=== PATIENT | female | born 1950 | race Caucasian/White ===

== ENCOUNTER 2016-11-20 22:41 | Emergency (ER) | payer BC ==
[~2016-11-20] VITALS: Ht 172.7 cm; Wt 80.0 kg
[2016-11-20 22:43] VITALS: BP 191/88; PULSE 91; RESP 20; O2SAT 95
[2016-11-20 23:00] VITALS: BP 188/91; PULSE 78; RESP 18; TEMP 97.9; O2SAT 97
--- NOTE | 2016-11-20 23:03 | PD ---
HPI Chief Complaint: Nosebleed Time Seen by Provider: 23:02 Travel History International Travel<30 days: No Contact w/Intl Traveler<30days: Yes (domestic flight) History of Present Illness HPI The patient 66 years old. [place] epistaxis from the right nostril. Application of pressure for approx 20 minutes did not help. She saw the first aid there. They stopped the epistaxis. She arrives here with no pain. She takes no anticoagulation. No similar prior events has occurred however she did have a mild episode of right epistaxis yesterday. PFSH Past Medical History Thyroid Disease: Yes : 3 Para: 3 Past Surgical History Tonsillectomy: Yes Other Surgery: Yes (breast implants) Social History Alcohol Use: Yes (socially) Tobacco Use: No Substance Use: No Allergies-Medications (Allergen,Severity, Reaction): Coded Allergies: No Known Allergies (Unverified , 11/20/16) Reported Meds & Prescriptions Reported Meds & Active Scripts Active Reported Ambien (Zolpidem Tartrate) 5 Mg Tab 5 Mg PO HS PRN Review of Systems Except as stated in HPI: all other systems reviewed are Neg General / Constitutional: No: Fever, Chills HENT: Positive: Nosebleed Physical Exam Narrative GENERAL: 66 yo F, WNWD, appropriate anxiety SKIN: Warm and dry. HEAD: Atraumatic. Normocephalic. EYES: Pupils equal and round. No scleral icterus. No injection or drainage. ENT: No nasal bleeding or discharge. Mucous membranes pink and moist. R anterior epistaxis with minimal active extravasation. + Blood in posterior oropharynx, minimal streaks of clotting blood. NECK: Trachea midline. No JVD. CARDIOVASCULAR: Regular rate and rhythm. No murmur appreciated. RESPIRATORY: No accessory muscle use. Clear to auscultation. Breath sounds equal bilaterally. GASTROINTESTINAL: Abdomen soft, non-tender, nondistended. Hepatic and splenic margins not palpable. MUSCULOSKELETAL: No obvious deformities. No clubbing. No cyanosis. No edema. NEUROLOGICAL: Awake and alert. No obvious cranial nerve deficits. Motor grossly within normal limits. Normal speech. PSYCHIATRIC: Appropriate mood and affect; insight and judgment normal. Data Data Last Documented VS Vital Signs Date Time Temp Pulse Resp B/P Pulse Ox O2 Delivery O2 Flow Rate FiO2 11/20/16 23:44 71 18 164/74 99 11/20/16 23:00 97.9 11/20/16 22:43 Room Air VS reviewed MDM Medical Decision Making Medical Screen Exam Complete: Yes Emergency Medical Condition: Yes Medical Record Reviewed: Yes Differential Diagnosis anterior epistaxis, posterior epistaxis, anemia, htn Narrative Course rhino rocket placed. pt tolerated well. she's ready for discharge. follow up with Dr Guerrier on Tuesday. case d/w Dr Guerrier Diagnosis Primary Impression: Anterior epistaxis Referrals: Willis Guerrier MD 1 day Call on Tuesday for same day appointment. Let office know I spoke with Dr Guerrier. Mic Barrera MD 1 day Additional Instructions: You have a choice when it comes to health care, and we are glad that you chose [facility]. Hopefully, we have met your expectations on today's visit. You are welcome to return to [facility] at any time, as we are committed to meeting the health care needs of our community. Med/Other Pt SpecificInfo: No Change to Meds Disposition: 01 DISCHARGE HOME Condition: Go Ohara MD Nov 20, 2016 23:03
[2016-11-20] MEDS ORDERED: AMBI5TAB PO (23:09)
[2016-11-20 23:44] VITALS: BP 164/74; PULSE 71; RESP 18; O2SAT 99
[2016-11-22] MEDS ORDERED: AFRI0.052 EACH NARE (15:04)
== END 2016-11-21 01:59 | disposition home or self-care (01) ==
LOC: NEPC 22:41
DX: R04.0 Epistaxis (principal); E07.9 Disorder of thyroid, unspecified
CPT/HCPCS: 30901

== ENCOUNTER 2016-11-22 07:00 | Emergency (ER) | payer BC ==
[~2016-11-22] VITALS: Ht 167.6 cm; Wt 95.0 kg
[~2016-11-22 07:00] MED LIST: AMBI5TAB PO
[2016-11-22 07:02] VITALS: BP 166/98; PULSE 87; RESP 16; TEMP 97.9; O2SAT 95
[2016-11-22 07:14] VITALS: RESP 17
--- NOTE | 2016-11-22 07:21 | PD ---
HPI Chief Complaint: Nosebleed Time Seen by Provider: 07:12 Travel History International Travel<30 days: No Contact w/Intl Traveler<30days: No Traveled to known affect area: No History of Present Illness HPI This is a 66-year-old female who was seen here 2 days ago for nosebleed, and presents here stating that her Rhino Rocket packing is leaking. Patient also reports pressure in her sinuses. She reports minimal leakage however is scheduled to go back to [place] and is concerned because of the leaking. There are no other complaints time of my examination. PFSH Past Medical History Thyroid Disease: Yes ?: Unknown : 3 Para: 3 Past Surgical History Tonsillectomy: Yes Other Surgery: Yes (breast implants) Social History Alcohol Use: Yes (socially) Tobacco Use: No Substance Use: No Allergies-Medications (Allergen,Severity, Reaction): Coded Allergies: No Known Allergies (Unverified , 11/20/16) Reported Meds & Prescriptions Reported Meds & Active Scripts Active Reported Ambien (Zolpidem Tartrate) 5 Mg Tab 5 Mg PO HS PRN Review of Systems Eyes: Positive: Other (patient reports having had a vitrectomy in the past.), No: Drainage HENT: Positive: Nosebleed (oozing from the Rhino Rocket packing), No: Headaches, Lightheadedness Gastrointestinal: No: Nausea Physical Exam Narrative GENERAL: Well-nourished, well-developed patient. SKIN: Warm and dry. HEAD: Normocephalic/atraumatic. EYES: No scleral icterus. No injection or drainage. NOSE: Patient has a Rhino Rocket packing in her right naris. There is bruising noted anteriorly. Upon removal the patient had a vigorous amount of blood draining from her anterior and posterior naris. A 5.5 Rhino Rocket was placed however patient reported still large amount of blood passing through her posterior throat. The posterior packing was placed with the posterior balloon inflated which patient reports decrease the blood flow in her posterior throat. However patient did have blood starting to drain in the anterior naris. The anterior balloon was also inflated however patient reports large amount of discomfort. NECK: Trachea Midline. Supple. NEUROLOGICAL: Awake and alert. Cranial nerves II through XII intact. Motor and sensory grossly within normal limits. Five out of 5 muscle strength in all muscle groups. Normal speech. Data Data Last Documented VS Vital Signs Date Time Temp Pulse Resp B/P Pulse Ox O2 Delivery O2 Flow Rate FiO2 11/22/16 08:35 158/88 96 11/22/16 07:26 18 11/22/16 07:02 97.9 87 Orders Morphine Inj (Morphine Inj) (11/22/16 07:45) Ondansetron Inj (Zofran Inj) (11/22/16 07:45) Complete Blood Count With Diff (11/22/16 08:05) Basic Metabolic Panel (Bmp) (11/22/16 08:05) Prothrombin Time / Inr (Pt) (11/22/16 08:05) Act Partial Throm Time (Ptt) (11/22/16 08:05) Invasive Rad Dept Consult (11/22/16 ) Labs Laboratory Tests Test 11/22/16 08:00 White Blood Count 9.9 TH/MM3 Red Blood Count 4.74 MIL/MM3 Hemoglobin 14.0 GM/DL Hematocrit 41.0 % Mean Corpuscular Volume 86.5 FL Mean Corpuscular Hemoglobin 29.5 PG Mean Corpuscular Hemoglobin 34.1 % Concent Red Cell Distribution Width 13.0 % Platelet Count 277 TH/MM3 Mean Platelet Volume 8.5 FL Neutrophils (%) (Auto) 70.7 % Lymphocytes (%) (Auto) 18.0 % Monocytes (%) (Auto) 6.6 % Eosinophils (%) (Auto) 3.9 % Basophils (%) (Auto) 0.8 % Neutrophils # (Auto) 7.0 TH/MM3 Lymphocytes # (Auto) 1.8 TH/MM3 Monocytes # (Auto) 0.6 TH/MM3 Eosinophils # (Auto) 0.4 TH/MM3 Basophils # (Auto) 0.1 TH/MM3 CBC Comment DIFF FINAL Differential Comment MDM Medical Decision Making Medical Screen Exam Complete: Yes Emergency Medical Condition: Yes Differential Diagnosis Anterior versus posterior epistaxis versus sinus drainage Narrative Course 66-year-old female with history of epistaxis 2 days. Patient was seen and evaluated on Tuesday and had her nose packed. She presents today stating it's oozing and the pain in her eye and had his severe from the pressure of the Rhino Rocket. Patient had profuse bleeding when trying to place another Rhino Rocket. There was a large amount of blood draining into the posterior pharynx. A posterior packing was placed which seemed to stop the posterior bleeding however it started to bleed through the front naris. I spoke with Dr. Jean Carlos Jain, on-call ENT, who recommended we consult specials procedures for possible embolization. I did speak with Dr. Ken Courtney, who was agreeable to performing an embolization on the right naris. The patient has been taking up to the special procedures area for her embolization. Labs and coags have been ordered for preprocedure. Diagnosis Primary Impression: Recurrent epistaxis Additional Impression: Cephalgia Dakotah Headley MD Nov 22, 2016 07:21
[2016-11-22] MEDS ORDERED: ONDANSETRON HCL 4 MG/2 ML VIAL IV PUSH ONE ×2 (07:45→11:45)
[2016-11-22] MEDS ORDERED: MORPHINE SULFATE 4 MG/ML INJ IV PUSH ONE (07:45)
[2016-11-22 08:15] LABS: BASOPHIL # 0.1 TH/MM3 (0-0.2); BASOPHIL % 0.8 % (0.0-2.0); EOSINOPHIL # 0.4 TH/MM3 (0-0.4); EOSINOPHIL % 3.9 % (0.0-4.0); HEMO FLAGS DIFF FINAL; LYMPHOCYTE # 1.8 TH/MM3 (1.0-4.8); MEAN CELL VOLUME 86.5 FL (80.0-100.0); MEAN CORPUSCULAR HEMOGLOBIN 29.5 PG (27.0-34.0); MEAN CORPUSCULAR HGB CONC 34.1 % (32.0-36.0); MONO % 6.6 % (0.0-8.0); NEUT % 70.7 % (16.0-70.0); PLATELET COUNT 277 TH/MM3 (150-450); RED BLOOD COUNT 4.74 MIL/MM3 (4.00-5.30); WHITE BLOOD COUNT 9.9 TH/MM3 (4.0-11.0)
[2016-11-22 08:27] LABS: APTT (PATIENT) 25.4 SEC (24.3-30.1); INTERNATIONAL NORMALIZED RATIO 0.9 RATIO; PROTHROMBIN TIME - PATIENT 9.9 SEC (9.8-11.6)
[2016-11-22 08:35] VITALS: BP 158/88
[2016-11-22 08:44] LABS: BICARBONATE 22.9 MEQ/L (21.0-32.0); POTASSIUM 4.3 MEQ/L (3.5-5.1)
[2016-11-22] MEDS ORDERED: MIDAZOLAM HCL 5 MG/5 ML VIAL ONE (08:50)
[2016-11-22] MEDS ORDERED: fentaNYL CITRATE 250 MCG/5 ML AMP ONE (08:51)
[2016-11-22] MEDS ORDERED: VERAPAMIL HCL 5 MG/2 ML VIAL ONE (09:46)
[2016-11-22] MEDS ORDERED: HEPARIN SODIUM - IV 10,000 UNITS/10 ML VIAL ONE (09:47)
[2016-11-22] MEDS ORDERED: MIDAZOLAM HCL 2 MG/2 ML VIAL ONE (10:03)
[2016-11-22] MEDS ORDERED: ceFAZolin 2 GM PREMIX 50 ML ONE (10:22)
[2016-11-22] MEDS ORDERED: IODIXANOL 320 MG/ML 10 ML VIAL (for RAD SPEC) I-ARTERIAL ONE (10:35)
[2016-11-22] MEDS ORDERED: SODIUM CHLOR 0.9% 1000 ML INJ 1,000 ML IV SCH (10:36)
--- NOTE | 2016-11-22 10:38 | PD.RAD ---
Post Procedure Progress Note Pre Procedure Diagnosis: (1) Recurrent epistaxis Post Procedure Diagnosis: (1) Recurrent epistaxis Procedure Date: Nov 22, 2016 Supervising Radiologist: Go Courtney Anesthesia: Local, Conscious Sedation Plan of Activity Patient to Unit: Other Patient Condition: Good Additional Comments: Successful embolization of the right IMax for recurrent epistaxis. Full dictated report to follow. See PACS Report for procedural detail/treatment Go Courtney MD Nov 22, 2016 10:38
[2016-11-22] MEDS ORDERED: ACETAMINOPHEN 325 MG TAB PO PRN (10:45)
[2016-11-22 11:00] VITALS: BP 129/64; PULSE 74; O2SAT 94
[2016-11-22 15:00] VITALS: BP 121/66
[2016-11-22] MEDS ORDERED: AFRI0.052 EACH NARE (15:04)
[2016-11-22 15:37] VITALS: BP 127/61
--- NOTE | 2016-11-22 16:18 | RADRPT ---
EXAM DATE/TIME: 11/22/2016 08:48 [facility] COMPARISON: TRANSCATH IV OCCLUSSION, November 22, 2016, 0:00. INDICATIONS : Patient with a history of epitaxis. The patient failed packing and cauterization. MEDICAL HISTORY : Thyroid disease SURGICAL HISTORY : Tonsillectomy Breast implants ENCOUNTER: Initial ACUITY: 2 days PAIN SCORE: 0/10 FLUORO TIME: 25.4 minutes ACCESS SITE: Right Femoral artery SEDATION TIME: 90 minutes CONTRAST: 150 cc Visipaque (iodixanol) MEDICATION(S): 1.) 5.5 mg midazolam (Versed) IV 2.) 250 mcg fentanyl (Sublimaze) IV 3.) 4000 units Heparin IV 4.) 10 mg Verapamil IART DEVICE(S): 1.) Right internal maxillary artery 355-500 PVA 2.) Right common femoral artery 6F Angio-Seal PROCEDURE : 1. Ultrasound-guided puncture of the access site. 2. Angiography of the access site prior to closure device. 3. Conscious sedation with continuous EKG and Oximetry monitoring. 4. Percutaneous closure of the access site. 5. Angiography of the right internal carotid circulation. 6. Angiography of the right external carotid circulation. 7. embolization of the right internal maxillary artery. The risks, benefits and alternatives to the procedure were explained and verbal and written consent w as obtained. The site was prepped in sterile fashion. Full sterile technique was used, including ca p, mask, sterile gloves and gown and a large sterile sheet. Hand hygiene and 2% chlorhexidine and/or betadine/alcohol prep was utilized per protocol for cutaneous antisepsis. The skin and subcutaneous tissues were infiltrated with local anesthetic solution. With ultrasound and fluoroscopic guidance the right common femoral was punctured and a vascular sheat h was placed. Angiography of the common femoral artery was performed for evaluation prior to percuta neous closure device placement. A 0.035 angled glide wire and MARYAM 2 catheter were advanced into the right common carotid. Selective ca rotid angiography was performed. The MARYAM 2 catheter was advanced into the external carotid circulation . This was exchanged for a Magic torque wire. A 6 Indian Raabe sheath was advanced from the right giovanny in and into the right common carotid circulation. A 0.035 angle Glidewire and glide catheter were fas hioned around a sheath and out into the distal right external carotid circulation. A renegade hi flow microcatheter was advanced through the glide catheter and positioned in the distal right internal ma xillary artery. Several angiographic runs demonstrating positioning were performed. The distal capill kristina bed of the internal maxillary circulation was embolized with 300-500 PVA. Followup angiography demonstrated minimal residual flow within the capillary bed. The procedure was terminated at this poi nt. The single angled glide catheter and microcatheter were removed. Angiography of the internal carotid circulation was performed. The intracranial circulation appeared widely patent. The patient tolerated the procedure well. Hemostasis was obtained with the prescribed medicated closure device. Conscious sedation was perform ed with the prescribed dosages and duration as above. EKG and oximetry remained stable throughout th e procedure. The patient was sent to post anesthesia recovery in stable condition. CONCLUSION: 1. Successful embolization of the capillary bed of the distal aspect of the right internal maxillary artery secondary to recurrent epistaxis. The patient tolerated the procedure well. Go Courtney MD on November 22, 2016 at 16:11 Board Certified Radiologist. This report was verified electronically.
== END 2016-11-22 15:37 | disposition home or self-care (01) ==
LOC: NEPC 07:00
DX: R04.0 Epistaxis (principal); R51 Headache
CPT/HCPCS: 36223; 36227; 36228; 61626; 75894; 76937; 80048; 85025; 85610; 85730; 96374; 96375; 99152; 99153; 99283; C1760; C1769; C1887; C1894; G0269; J0690; J1644; J2250; J2270; J2405; J3010; Q9967; 75898